=== PATIENT | female | born 1995 | race Caucasian/White ===

== ENCOUNTER 2016-07-25 22:02 | Emergency (ER) | payer MEDICAID ==
[~2016-07-25] VITALS: Ht 149.9 cm; Wt 96.1 kg
[2016-07-25 22:06] VITALS: BP 142/107
[2016-07-25 23:46] LABS: HCG UR OBC PASS
== END 2016-07-26 00:11 | disposition home or self-care (01) ==
LOC: ED 23:59
DX: N30.00 Acute cystitis without hematuria (principal)
CPT/HCPCS: 81001; 81025; 87086; 99284